=== PATIENT | male | born 1990 | race American Indian/Alaskan Native ===

== ENCOUNTER 2017-11-23 19:45 | Emergency (ER) | payer OTHER ==
[2017-11-23 20:30] VITALS: BP 128/75
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
[2017-11-23] MEDS ORDERED: FLEXERIL PO ONE (21:38)
[2017-11-23] MEDS ORDERED: NORCO 7.5/325 PO ONE (21:38)
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
== END 2017-11-24 00:55 | disposition home or self-care (01) ==
LOC: ED 19:45
DX: M79.1 Myalgia (principal); R07.89 Other chest pain; M25.552 Pain in left hip
CPT/HCPCS: 71046